=== PATIENT | female | born 1970 | race Two or more races ===

== ENCOUNTER 2018-06-25 12:50 | Emergency (ER) | payer OTHER ==
--- NOTE | 2018-06-25 13:01 | PDOC ---
Rapid Medical Evaluation Time Seen by Provider: 06/25/18 12:58 Medical Evaluation: Allergies Allergy/AdvReac Type Severity Reaction Status Date / Time No Known Allergies Allergy Verified 12/10/13 07:35 06/25/18 12:58 I have performed a brief in-person evaluation of the patient. The patient presents with a chief complaint of: headache x 1 week with nausea and vomiting. Reports a little photophobia but no blurred vision. States vomited today Pertinent physical exam findings. NAD lungs clear bilaterally +sinus tenderness I have ordered the following. iv access, fluid antiemetic and analgesia The patient will proceed to the ED for further evaluation.
[2018-06-25 13:05] VITALS: BP 137/88; PULSE 95; TEMP 97.9; BMI 24.2
[2018-06-25] MEDS ORDERED: ACETAMINOPHEN 500 MG TABLET (FP) PO ONE (13:06)
[2018-06-25] MEDS ORDERED: METOCLOPRAMIDE HCL INJECTION 10 MG/2 ML VIAL IVPUSH ONE ×2 (13:08→15:00)
[2018-06-25] MEDS ORDERED: SODIUM CHLORIDE 0.9% 500 ML INFUS.BAG IV ONE (13:09)
[2018-06-25] MEDS ORDERED: METOCLOPRAMIDE HCL 10 MG TABLET (FP) PO ONE ×2 (13:23→13:45)
--- NOTE | 2018-06-25 13:38 | PDOC ---
Attending Attestation - Resident Resident Name: Omega Saini - ED Attending Attestation I have performed the following: I have examined & evaluated the patient, The case was reviewed & discussed with the resident, I agree w/resident's findings & plan, Exceptions are as noted - Physicial Exam PE: 06/25/18 15:01 GENERAL: The patient is awake, alert, and fully oriented, Nontoxic - in no acute distress. HEAD: Normocephalic, atraumatic. EYES: extraocular movements intact, sclera anicteric, conjunctiva clear. ENT: Normal voice, Moist mucous membranes. NECK: Normal range of motion, supple, LUNGS: Breath sounds equal, clear to auscultation bilaterally. No wheezes, no rhonchi, no rales. HEART: Regular rate and rhythm, normal S1 and S2 without murmur, rub or gallop. ABDOMEN: Soft, nontender, No guarding, no rebound. . No CVA tenderness EXTREMITIES: Normal range of motion, NEUROLOGICAL: No facial assymetry, Normal speech, moving all 4 extremity spontaneously and symmetrically, sensation intact throughout PSYCH: Normal mood, normal affect. SKIN: Warm, Dry, normal turgor, - Medical Decision Making 06/25/18 13:38 47y F presents with 1 week of gradual onset headache. The pt notes frequent headaches with her periods, that are similar in nature that are right sided, pressure like, associated with photophobia/phonophobia, vomiting. no associated fever/necks tiffness, cp, sob, cough, congestion, back pain, numbness/tingling/ weakness. pts exam non focal suspect tension/hormonal migraine will treat supportively with reglan, fluids will reassess A portion of this note was documented by scribe services under my direction. I have reviewed the details of the note, within reason, and agree with the documentation with the following case summary and management plan written by me <John Ross - Last Filed: 06/25/18 14:53> - HPI HPI: 06/25/18 15:08 47y F no pmh who presents to the emergency department for evaluation of a 1 week history of worsening frontal headache. The patient reports having similar headache 5 years ago which she has seen neurology for (unable to recall neurologist name) but then resolved. Patient reports right sided frontal headache described as pressure like, which is exacerbated with light, loud noise , and typically comes with her menstruation for the past year. Patient endorses multiple episodes of non bloody emesis yesterday and today which prompted her to come to the ED for further evaluation as she has never vomited before. Pt denies any fever/chills, neck stiffness. Denies chest pain, shortness of breath, sick contact, visual changes, focal deficits, and urinary or bowel incontinence. - Medical Decision Making Documentation prepared by Sang Braun, acting as medical office coordinator for John Ross MD. <Sang Braun - Last Filed: 06/25/18 15:09>
[2018-06-25] MEDS ORDERED: ACETAMINOPHEN 325 MG TABLET (FP) ONE (13:45)
--- NOTE | 2018-06-25 14:03 | PDOC ---
History of Present Illness - General Chief Complaint: Headache Stated Complaint: HEADACHE Time Seen by Provider: 06/25/18 12:58 History Source: Patient Exam Limitations: No Limitations - History of Present Illness Initial Comments: 06/25/18 13:57 Patient is a 47F with no significant medical history here today complaining of a headache that onset a week ago insidiously. She states that she has associated stuffy nose. Denies fevers, chills, neck stiffness. She states that she's coming in today because she today because she vomited after taking some sudafed. Denies chest pain, shortness of breath, abdominal pain, dysuria. Denies facial droop, arm weakness, leg weakness. She states that the pain starts on her right forehead going to her right side of the posterior aspect of her head. Past History - Past Medical History Allergies/Adverse Reactions: Allergies Allergy/AdvReac Type Severity Reaction Status Date / Time No Known Allergies Allergy Verified 06/25/18 13:02 Home Medications: Ambulatory Orders Acetaminophen [Tylenol] 650 mg PO QID PRN 06/25/18 Ibuprofen [Motrin -] 600 mg PO TID PRN 06/25/18 Pseudoephedrine HCl [Sudafed] 30 mg PO ONCE 06/25/18 Asthma: No COPD: No CHF: No Hypercholesterolemia: No - Suicide/Smoking/Psychosocial Hx Smoking Status: No Smoking History: Never smoked Have you smoked in the past 12 months: No Number of Cigarettes Smoked Daily: 0 Hx Alcohol Use: Yes (SOCIALLY) Substance Use Type: Alcohol Review of Systems - Review of Systems Comments:: 06/25/18 14:03 GENERAL/CONSTITUTIONAL: No fever or chills. No weakness. HEAD, EYES, EARS, NOSE AND THROAT: No change in vision. No ear pain or discharge. No sore throat. CARDIOVASCULAR: No chest pain or shortness of breath RESPIRATORY: No cough, wheezing, or hemoptysis. GASTROINTESTINAL: +nausea, +vomiting, no diarrhea or constipation. GENITOURINARY: No dysuria, frequency, or change in urination. MUSCULOSKELETAL: No joint or muscle swelling or pain. No neck or back pain. SKIN: No rash NEUROLOGIC: +headache, no vertigo, loss of consciousness, or change in strength/ sensation. ENDOCRINE: No increased thirst. No abnormal weight change HEMATOLOGIC/LYMPHATIC: No anemia, easy bleeding, or history of blood clots. ALLERGIC/IMMUNOLOGIC: No hives or skin allergy. *Physical Exam - Vital Signs Last Vital Signs Temp Pulse Resp BP Pulse Ox 97.9 F 95 H 22 H 137/88 99 06/25/18 13:03 06/25/18 13:03 06/25/18 13:03 06/25/18 13:03 06/25/18 13:03 - Physical Exam Comments: 06/25/18 14:03 GENERAL: Awake, alert, and fully oriented, in no acute distress HEAD: No signs of trauma, tender over right frontal sinus EYES: PERRLA, EOMI, sclera anicteric, conjunctiva clear ENT: Auricles normal inspection, hearing grossly normal, nares patent, oropharynx clear without exudates. Moist mucosa NECK: Normal ROM, supple, no lymphadenopathy, JVD, or masses LUNGS: No distress, speaks full sentences, clear to auscultation bilaterally HEART: Regular rate and rhythm, normal S1 and S2, no murmurs, rubs or gallops, peripheral pulses normal and equal bilaterally. ABDOMEN: Soft, nontender, normoactive bowel sounds. No guarding, no rebound. No masses EXTREMITIES: Normal inspection, Normal range of motion, no edema. No clubbing or cyanosis. NEUROLOGICAL: Cranial nerves II through XII grossly intact. Normal speech, normal gait, no focal sensorimotor deficits SKIN: Warm, Dry, normal turgor, no rashes or lesions noted. Moderate Sedation - Procedure Monitoring Vital Signs: Procedure Monitoring Vital Signs Temperature 97.9 F 06/25/18 13:03 Pulse Rate 95 H 06/25/18 13:03 Respiratory Rate 22 H 06/25/18 13:03 Blood Pressure 137/88 06/25/18 13:03 O2 Sat by Pulse Oximetry (%) 99 06/25/18 13:03 ED Treatment Course - LABORATORY CBC & Chemistry Diagram: 06/25/18 14:38 06/25/18 14:38 - Medications Given in the ED: ED Medications Discontinued Medications Generic Name Dose Route Start Last Admin Trade Name Freq PRN Reason Stop Dose Admin Acetaminophen 1,000 mg 06/25/18 13:06 06/25/18 13:49 Tylenol - PO 06/25/18 13:07 1,000 mg ONCE ONE Administration Metoclopramide HCl 10 mg 06/25/18 13:23 06/25/18 13:49 Reglan - PO 06/25/18 13:24 10 mg ONCE ONE Administration Medical Decision Making - Medical Decision Making 06/25/18 14:03 Patient is 47F here today with headache. Vitals normal and stable. Exam and history most consistent with sinus headache. No fever to suggest sinusitis. Will treat with reglan and tylenol. Head bleed and mass considered, do not believe remotely likely. Will reassess, likely discharge. 06/25/18 16:44 CBC, CMP normal, negative. Patient reassessed, feeling better, will discharge home. *DC/Admit/Observation/Transfer Diagnosis at time of Disposition: Headache - Discharge Dispostion Disposition: HOME Condition at time of disposition: Good Decision to Admit order: No - Referrals Referrals: Rupert Wells MD [Primary Care Provider] - - Patient Instructions Printed Discharge Instructions: DI for Headache Additional Instructions: Please follow up with your primary care doctor this week. Please follow up with a neurologist in your paperwork for further evaluation of your headache. Please return if you have any new, worsening or concerning symptoms, especially fever, increasing pain and vomiting. - Post Discharge Activity
[2018-06-25] MEDS ORDERED: SODIUM CHLORIDE 1,000 ML IV STA (14:18)
[2018-06-25] MEDS ORDERED: ONDANSETRON 4 MG/2 ML VIAL IVPUSH ONE (14:18)
[2018-06-25] MEDS ORDERED: ONDANSETRON 4 MG/2 ML VIAL ONE (14:40)
[2018-06-25 14:47] LABS: BASO % 0.9 % (0-2.0); HEMATOCRIT 36.4 % (32.4-45.2); HEMOGLOBIN 12.1 GM/dL (10.7-15.3); LYMPH % 10.6 % (8-40); MCH 25.8 pg (25.7-33.7); MCHC 33.4 g/dl (32.0-36.0); MEAN CELL VOLUME 77.3 fl (80-96); MEAN PLT VOLUME 7.5 fl (7.5-11.1); MONO % 2.6 % (3.8-10.2); NEUT % 85.9 % (42.8-82.8); PLATELET COUNT 335 K/MM3 (134-434); RBC 4.71 M/mm3 (3.60-5.2); RDW 19.1 % (11.6-15.6)
[2018-06-25] MEDS ORDERED: METOCLOPRAMIDE HCL INJECTION 10 MG/2 ML VIAL ONE (15:01)
[2018-06-25] MEDS ORDERED: MAGNESIUM 1GM/D5W - 1 GM/100 ML IVPB IVPB ONE (15:01)
[2018-06-25 15:23] LABS: ALBUMIN 4.3 g/dl (3.4-5.0); ALK PHOS 99 U/L (45-117); ANION GAP 8 MMOL/L (8-16); BILIRUBIN,TOTAL 0.2 mg/dL (0.2-1); BLOOD UREA NITROGEN 10 mg/dL (7-18); CALCIUM 9.4 mg/dL (8.5-10.1); CHLORIDE 107 mmol/L (98-107); CO2 27 mmol/L (21-32); CREATININE 0.5 mg/dL (0.55-1.3); GLUCOSE,RANDOM 122 mg/dL (74-106); POTASSIUM 4.1 mmol/L (3.5-5.1); SGOT/AST 23 U/L (15-37); SGPT/ALT 31 U/L (13-61); SODIUM 142 mmol/L (136-145); TOT PROT 7.3 g/dl (6.4-8.2)
== END 2018-06-25 16:51 | disposition home or self-care (01) ==
LOC: JER 12:50
DX: R51 Headache (principal)
CPT/HCPCS: 36415; 80053; 84703; 85025; 99282-25; J7030

== ENCOUNTER 2019-02-17 15:37 | Emergency (ER) | payer OTHER ==
[2019-02-17 15:51] VITALS: BP 137/84; PULSE 99; TEMP 97.6; BMI 24.6
[2019-02-17] MEDS ORDERED: SODIUM CHLORIDE 1,000 ML IV STA (17:57)
[2019-02-17] MEDS ORDERED: ACETAMINOPHEN 1000 MG/100 ML VIAL (NON FORMULARY) IVPB ONE (17:57)
[2019-02-17] MEDS ORDERED: METOCLOPRAMIDE HCL INJECTION 10 MG/2 ML VIAL IVPB ONE (17:57)
[2019-02-17] MEDS ORDERED: DEXAMETHASONE SOD PHOSPHATE 20 MG/5 ML VIAL IVPB ONE (18:02)
--- NOTE | 2019-02-17 18:09 | PDOC ---
History of Present Illness - General History Source: Patient Exam Limitations: Language Barrier (phone asl interpreter used) <Karina Jones - Last Filed: 02/17/19 19:33> <Rupert Oliva - Last Filed: 02/17/19 21:46> - General Chief Complaint: Headache Stated Complaint: HEADACHE Time Seen by Provider: 02/17/19 17:43 Past History - Past Medical History Asthma: No COPD: No CHF: No Hypercholesterolemia: No - Surgical History Cholecystectomy: Yes - Suicide/Smoking/Psychosocial Hx Smoking Status: No Smoking History: Never smoked Have you smoked in the past 12 months: No Number of Cigarettes Smoked Daily: 0 Hx Alcohol Use: Yes (SOCIALLY) Substance Use Type: Alcohol <Karina Jones - Last Filed: 02/17/19 19:33> <Rupert Oliva - Last Filed: 02/17/19 21:46> - Past Medical History Allergies/Adverse Reactions: Allergies Allergy/AdvReac Type Severity Reaction Status Date / Time No Known Allergies Allergy Verified 02/17/19 15:51 Home Medications: Ambulatory Orders Acetaminophen [Tylenol] 650 mg PO QID PRN 06/25/18 Ibuprofen [Motrin -] 600 mg PO TID PRN 06/25/18 Pseudoephedrine HCl [Sudafed] 30 mg PO ONCE 06/25/18 *Physical Exam - Vital Signs Last Vital Signs Temp Pulse Resp BP Pulse Ox 97.6 F 99 H 18 137/84 99 02/17/19 15:49 02/17/19 15:49 02/17/19 15:49 02/17/19 15:49 02/17/19 15:49 - Physical Exam General Appearance: No: Apparent Distress HEENT: positive: JOSE Neck: positive: Supple Respiratory/Chest: positive: Lungs Clear, Normal Breath Sounds. negative: Respiratory Distress Cardiovascular: positive: Regular Rhythm, Regular Rate, S1, S2. negative: Murmur Neurologic: positive: city controller II-XII NML intact, Fully Oriented, Alert, Normal Mood/ Affect, Motor Strength 5/5, Other (normal gait). negative: Facial Droop, Confused, Disoriented <Karina Jones - Last Filed: 02/17/19 19:33> - Vital Signs Last Vital Signs Temp Pulse Resp BP Pulse Ox 97.6 F 99 H 18 137/84 99 02/17/19 15:49 02/17/19 15:49 02/17/19 15:49 02/17/19 15:49 02/17/19 15:49 <Rupert Oliva - Last Filed: 02/17/19 21:46> ED Treatment Course - Medications Given in the ED: ED Medications Discontinued Medications Generic Name Dose Route Start Last Admin Trade Name Art PRN Reason Stop Dose Admin Acetaminophen 1,000 mg 02/17/19 17:57 02/17/19 18:57 Ofirmev Injection - IVPB 02/17/19 17:58 1,000 mg ONCE ONE Administration Dexamethasone Sodium Phosphate 10 mg 02/17/19 18:02 02/17/19 18:57 Decadron Injection - IVPB 02/17/19 18:03 10 mg ONCE ONE Administration Sodium Chloride 1,000 mls @ 1,000 mls/hr 02/17/19 17:57 02/17/19 18:18 Normal Saline - IV 02/17/19 18:56 1,000 mls/hr ASDIR STA Administration Metoclopramide HCl 10 mg 02/17/19 17:57 02/17/19 18:20 Reglan Injection - IVPB 02/17/19 17:58 10 mg ONCE ONE Administration <Rupert Oliva - Last Filed: 02/17/19 21:46> Medical Decision Making - Medical Decision Making 48 y/o F hx of migraines presents with generalized ABRAMS x 1 week, gradual in onset , worse today along with 3 episodes of NBNB emesis. States light and noise worsen headaches. Took Rizatriptan for ABRAMS today but didn't feel much relief with that. Mentions HAs are usually worse around menstrual cycle. Follows with neuro, Dr. Melchor, for her migraines, whom she last saw a month ago. Denies fever, URI sxs, sob, cp, numbness/tingling/weakness of extremities, dizziness, gait changes. Of note, patient had brain MRI 08/2018 which was negative Not suspicious for ICH Likely migraine ABRAMS Plan: IVF, Tylenol, Reglan, Decadron, reassess 02/17/19 18:06 patient feeling better on reassessment stable for dc 02/17/19 19:33 <Karina Jones - Last Filed: 02/17/19 19:33> - Medical Decision Making 02/17/19 21:46 I reviewed the case of the mid-level practitioner and was available for consultation while in the emergency department <Rupert Oliva - Last Filed: 02/17/19 21:46> *DC/Admit/Observation/Transfer - Discharge Dispostion Decision to Admit order: No <Karina Jones - Last Filed: 02/17/19 19:33> <HazelRupert gay - Last Filed: 02/17/19 21:46> Diagnosis at time of Disposition: Migraine Qualifiers: Migraine type: unspecified Status migrainosus presence: without status migrainosus Intractability: not intractable Qualified Code(s): G43.909 - Migraine, unspecified, not intractable, without status migrainosus - Discharge Dispostion Disposition: HOME Condition at time of disposition: Improved - Referrals Referrals: Jesusita Melchor MD [Staff Physician] - 2 Days - Patient Instructions Printed Discharge Instructions: DI for Migraine Additional Instructions: Thank you for choosing [facility]. It was a pleasure taking care of you. Please follow-up with your neurologist regarding your migraines Return to the Emergency Department if your symptoms worsen or persist, you have fever, neck stiffness, vomiting, weakness of extremities (arms and/or legs), changes in vision or walking or other concerning symptoms. Santos por elegir el [facility]. Fue un placer cuidar de ti. Viv un seguimiento con schaffer neurlogo con respecto a nayeli migraas. Regrese al departamento de emergencias si nayeli sntomas empeoran o persisten, tiene fiebre, rigidez en el [place], vmitos, debilidad de las extremidades ( brazos y / o piernas), cambios en la visin o al caminar u otros sntomas preocupantes. Print Language: SLOVENIAN
[2019-02-17] MEDS ORDERED: DEXAMETHASONE SOD PHOSPHATE 10 MG/1 ML VIAL ONE (18:15)
[2019-02-17] MEDS ORDERED: METOCLOPRAMIDE HCL INJECTION 10 MG/2 ML VIAL ONE (18:15)
[2019-02-17] MEDS ORDERED: ACETAMINOPHEN INJECTION 100 ML IVPB ONE (18:40)
== END 2019-02-17 19:50 | disposition home or self-care (01) ==
LOC: JERFT 15:37 → JER 15:37 → JERFT 19:50
PROC: 3E0337Z Introduction of Electrolytic and Water Balance Substance into Peripheral Vein, Percutaneous Approach (ICD-10-PCS; principal; 2019-02-17)
PROC: 3E033NZ Introduction of Analgesics, Hypnotics, Sedatives into Peripheral Vein, Percutaneous Approach (ICD-10-PCS; 2019-02-17)
PROC: 3E0333Z Introduction of Anti-inflammatory into Peripheral Vein, Percutaneous Approach (ICD-10-PCS; 2019-02-17)
PROC: 3E033GC Introduction of Other Therapeutic Substance into Peripheral Vein, Percutaneous Approach (ICD-10-PCS; 2019-02-17)
DX: G43.909 Migraine, unspecified, not intractable, without status migrainosus (principal)
CPT/HCPCS: 96361; 96374; 96375; 99282-25; J0131; J7030

== ENCOUNTER 2022-01-06 04:07 | Day surgery (SDC) | payer OTHER ==
[2022-01-03 14:10] VITALS: BMI 21.9
[2022-01-06 10:38] VITALS: TEMP 98
[2022-01-06 11:11] VITALS: BP 123/63; PULSE 64; RESP 15
== END 2022-01-06 11:30 | disposition home or self-care (01) ==
LOC: JASU-ENDO 04:07
PROVIDERS: ATTEND Internal Medicine Gastroenterology
PROC: 0DJD8ZZ Inspection of Lower Intestinal Tract, Via Natural or Artificial Opening Endoscopic (ICD-10-PCS; principal; 2022-01-06 08:30)
DX: Z12.11 Encounter for screening for malignant neoplasm of colon (principal); K57.30 Diverticulosis of large intestine without perforation or abscess without bleeding; K64.8 Other hemorrhoids
CPT/HCPCS: 81025